=== PATIENT | male | born 1955 | race African-American/Black ===

== ENCOUNTER 2021-07-11 14:54 | Emergency (ER) | payer OTHER ==
[~2021-07-11] VITALS: Ht 167.6 cm; Wt 56.0 kg
[2021-07-11 15:16] VITALS: BP 122/72
[2021-07-11] MEDS ORDERED: IBUPROFEN 400MG TABLET PO ONE (17:15)
[2021-07-11] MEDS ORDERED: ACETAMINOPHEN 325MG TABLET PO ONE (17:15)
== END 2021-07-12 01:00 | disposition left against medical advice (07) ==
LOC: ER 14:54
DX: Z53.21 Procedure and treatment not carried out due to patient leaving prior to being seen by health care provider (principal); R51.9 Headache, unspecified